=== PATIENT | female | born 1980 | race Two or more races ===

== ENCOUNTER 2016-09-16 21:53 | Emergency (ER) | payer OTHER ==
[2016-09-16 21:55] VITALS: BP 114/75
== END 2016-09-17 01:17 | disposition left against medical advice (07) ==
LOC: ED 21:53
DX: Z53.21 Procedure and treatment not carried out due to patient leaving prior to being seen by health care provider (principal)

== ENCOUNTER 2017-12-04 19:28 | Emergency (ER) | payer MEDICAID ==
[~2017-12-04] VITALS: Ht 162.6 cm; Wt 93.4 kg
[2017-12-04 19:36] VITALS: Ht 162.6 cm; Wt 93.4 kg
[2017-12-04 21:46] VITALS: BP 110/71
== END 2017-12-04 21:46 | disposition home or self-care (01) ==
LOC: ED 19:28
DX: R51 Headache (principal); Z86.2 Personal history of diseases of the blood and blood-forming organs and certain disorders involving the immune mechanism; Z98.890 Other specified postprocedural states
CPT/HCPCS: J1885

== ENCOUNTER 2018-02-12 19:43 | Emergency (ER) | payer MEDICAID ==
[~2018-02-12] VITALS: Ht 165.1 cm; Wt 93.4 kg
[2018-02-12 20:11] VITALS: Ht 165.1 cm; Wt 93.4 kg
[2018-02-13 00:14] VITALS: BP 134/80
== END 2018-02-13 00:14 | disposition home or self-care (01) ==
LOC: ED 19:43
DX: J32.9 Chronic sinusitis, unspecified (principal); Z86.2 Personal history of diseases of the blood and blood-forming organs and certain disorders involving the immune mechanism; Z98.890 Other specified postprocedural states

== ENCOUNTER 2018-05-01 23:53 | Emergency (ER) | payer MEDICAID ==
[~2018-05-01] VITALS: Ht 167.6 cm; Wt 95.0 kg
[2018-05-02 00:07] VITALS: Ht 167.6 cm; Wt 95.0 kg
[2018-05-02 01:43] VITALS: BP 133/63
== END 2018-05-02 01:43 | disposition home or self-care (01) ==
LOC: ED 23:53
DX: J02.9 Acute pharyngitis, unspecified (principal); Z98.890 Other specified postprocedural states

== ENCOUNTER 2018-12-02 13:10 | Emergency (ER) | payer MEDICAID ==
[~2018-12-02] VITALS: Ht 165.1 cm; Wt 93.9 kg
[2018-12-02 13:37] VITALS: Ht 165.1 cm; Wt 93.9 kg
[2018-12-02 14:23] VITALS: BP 117/82
== END 2018-12-02 14:23 | disposition home or self-care (01) ==
LOC: ED 13:10
DX: J02.9 Acute pharyngitis, unspecified (principal); Z86.2 Personal history of diseases of the blood and blood-forming organs and certain disorders involving the immune mechanism; Z98.890 Other specified postprocedural states

== ENCOUNTER 2020-01-17 19:18 | Emergency (ER) | payer MEDICAID ==
[~2020-01-17] VITALS: Ht 162.6 cm; Wt 99.3 kg
[2020-01-17 20:23] LABS: BASOPHIL % 0.6 % (0-2); PLATELET COUNT 277 x10^3mcL (130-400)
[2020-01-17 20:27] LABS: RED CELL DISTRIBUTION WIDTH 19.1 % (11.5-14.5)
[2020-01-18 02:12] VITALS: BP 144/64
== END 2020-01-18 02:12 | disposition home or self-care (01) ==
LOC: ED 19:18
PROVIDERS: Emergency Medicine
DX: N93.8 Other specified abnormal uterine and vaginal bleeding (principal); D25.9 Leiomyoma of uterus, unspecified; N83.202 Unspecified ovarian cyst, left side; D64.9 Anemia, unspecified; Z90.89 Acquired absence of other organs

== ENCOUNTER 2020-02-21 21:27 | Emergency (ER) | payer MEDICAID ==
[~2020-02-21] VITALS: Ht 160 cm; Wt 100.2 kg
[2020-02-21 21:37] VITALS: BP 159/82; Ht 160 cm; Wt 100.2 kg
== END 2020-02-21 23:35 | disposition home or self-care (01) ==
LOC: ED 21:27
DX: S61.412A Laceration without foreign body of left hand, initial encounter (principal); Z98.890 Other specified postprocedural states; W25.XXXA Contact with sharp glass, initial encounter; Y93.89 Activity, other specified; Y92.89 Other specified places as the place of occurrence of the external cause; Y99.8 Other external cause status
CPT/HCPCS: J2001

== ENCOUNTER 2020-02-28 21:10 | Emergency (ER) | payer MEDICAID ==
[~2020-02-28] VITALS: Ht 154.9 cm; Wt 98.9 kg
[2020-02-28 21:33] VITALS: Ht 154.9 cm; Wt 98.9 kg
[2020-02-28 21:49] VITALS: BP 130/83
== END 2020-02-28 21:49 | disposition home or self-care (01) ==
LOC: ED 21:10
DX: S61.412D Laceration without foreign body of left hand, subsequent encounter (principal); Z98.890 Other specified postprocedural states; Z90.89 Acquired absence of other organs; X58.XXXD Exposure to other specified factors, subsequent encounter